=== PATIENT | male | born 1985 | race Caucasian/White ===

== ENCOUNTER 2020-10-06 10:03 | Emergency (ER) | payer BC, SELFPAY ==
[2020-10-06 10:07] VITALS: BP 104/71; PULSE 75; RESP 16; TEMP 36.4; O2SAT 97; BMI 25.7
[2020-10-06 10:14] VITALS: BP 104/71; PULSE 74; RESP 16; O2SAT 97
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
[2020-10-06 10:25] LABS: Basophils # 0.1 10^3/uL (0.0-0.1); Basophils % 0.7 %; Eosinophils # 0.1 10^3/uL (0.0-0.8); Eosinophils % 0.6 %; Hematocrit 45.7 % (42.0-52.0); Hemoglobin 16.1 g/dL (11.7-16.6); Lymphocytes % 34.8 %; Mean Corpuscular HGB Conc 35.2 g/dL (30.0-36.0); Mean Corpuscular Hemoglobin 31.9 pg (28.0-34.0); Mean Corpuscular Volume 90.5 fL (80-94); Mean Platelet Volume 10.3 fL (7.4-10.4); Monocytes % 8.3 %; Neutrophils # 6.39 10^3/uL (1.8-7.7); Neutrophils % 55.2 %; Nucleated Red Blood Cells % 0 %; Platelet Count 345 10^3/cmm (130-400); Red Blood Count 5.05 10^6/uL (4.1-5.3); Red Cell Distribution Width 11.4 % (12.1-15.1); White Blood Count 11.6 10^3/uL (4.0-10.0)
--- NOTE | 2020-10-06 10:34 | W.ED.WOUNDLC ---
HPI - Wound/Laceration General: Chief Complaint: Wound/Laceration Stated Complaint: LEG LAC Time Seen by Provider: 10/06/20 10:07 Source: patient Mode of arrival: ambulatory Limitations: no limitations Procedures Laceration Laceration 1: Site: lower extremity (left medial thigh) Side (If applicable): left Size (cm): 2 Description: linear Depth: involves muscle layer Local Anesthetic: lidocaine 1% and with epi Amount of anesthesia used (mL): 5 Pre-repair: wound explored and irrigated extensively Skin layer closed with: nylon Size (cm): 5-0 Number of sutures: 5 Technique: simple, interrupted Course Vital Signs: Vital signs: Vital Signs Temperature 97.5 F L 10/06/20 10:07 Pulse Rate 74 10/06/20 10:14 Respiratory Rate 16 10/06/20 10:14 Blood Pressure 104/71 10/06/20 10:14 Pulse Oximetry 97 10/06/20 10:14 MDM - Wound/Laceration Lab Data: Labs: Lab Results 10/06/20 Range/Units 10:20 WBC 11.6 H (4.0-10.0) 10^3/ uL RBC 5.05 (4.1-5.3) 10^6/u L Hgb 16.1 (11.7-16.6) g/dL Hct 45.7 (42.0-52.0) % MCV 90.5 (80-94) fL MCH 31.9 (28.0-34.0) pg MCHC 35.2 (30.0-36.0) g/dL RDW 11.4 L (12.1-15.1) % Plt Count 345 (130-400) 10^3/c mm MPV 10.3 (7.4-10.4) fL Neut % (Auto) 55.2 % Lymph % (Auto) 34.8 % Ed[place]ds % (Auto) 8.3 % Eos % (Auto) 0.6 % Baso % (Auto) 0.7 % Neut # (Auto) 6.39 (1.8-7.7) 10^3/u L Lymph # (Auto) 4.0 (0.8-4.8) 10^3/u L Edmunds # (Auto) 1.0 H (0.2-0.9) 10^3/u L Eos # (Auto) 0.1 (0.0-0.8) 10^3/u L Baso # (Auto) 0.1 (0.0-0.1) 10^3/u L Nucleated RBC % (a uto) 0 % Nucleated RBCs # 0.0 /100WBC Coding Level of Care Code ED Primary School Principal for Kathleen Lamb
[2020-10-06] MEDS: iohexol 350 mg/mL 100 mL Btl IV (10:44)
[2020-10-06 10:49] VITALS: RESP 15; O2SAT 98
[2020-10-06] MEDS: morphine 4 mg/mL SDV 1 mL IVP (10:49)
[2020-10-06] MEDS: ondansetron 2 mg/ML SDV 2 mL 4 MG IVP (10:49)
[2020-10-06] MEDS: sodium chloride 0.9% 1,000 ML 999 ML IV (10:49)
[2020-10-06 11:45] LABS: Anion Gap 16.4 (5-19); Blood Urea Nitrogen 20 mg/dL (6-20); Calcium 9.1 mg/dL (8.5-10.5); Carbon Dioxide 24 mmol/L (22-29); Chloride 104 mmol/L (98-107); Glomerular Filtration Rate 77.1 mL/min (90-130); Glucose 128 mg/dL (65-115); Osmolality Calculated 296 mOsm/kg (285-295); Potassium 3.4 mmol/L (3.5-5.1); Sodium 141 mmol/L (136-145)
[2020-10-06] MEDS: tetanus-dipt-pertussis 0.5 mL SDV IM (12:01)
[2020-10-06 12:19] VITALS: BP 113/70; PULSE 75; RESP 18; O2SAT 99
== END 2020-10-06 12:20 | disposition other institution (70) ==
LOC: ER 11:30
PROVIDERS: Emergency Provider Emergency Medicine
DX: S71.112A Laceration without foreign body, left thigh, initial encounter (principal); S85.002A Unspecified injury of popliteal artery, left leg, initial encounter; W26.0XXA Contact with knife, initial encounter; Z23 Encounter for immunization
CPT/HCPCS: 12001; 12345; 73706; 80048; 85025; 90715; 96361; 96374; 96375; 99282; 99285; J2270; J2405; J7030; Q9967

== ENCOUNTER 2022-01-22 20:55 | Emergency (ER) | payer BC, SELFPAY ==
--- NOTE | 2022-01-22 21:01 | XRR_ITS ---
PROCEDURE INFORMATION: Exam: XR Left Ankle Exam date and time: 01/22/2022 9:01 PM Age: 36 years old Clinical indication: Pain; Ankle; Left; Additional info: Injury TECHNIQUE: Imaging protocol: XR Left ankle. Views: 3 or more views. COMPARISON: No relevant prior studies available. FINDINGS: Bones/joints: Normal. Soft tissues: Normal. XR/XR ankle LT min 3V* [id number] IMPRESSION: No acute findings.
[2022-01-22 21:05] VITALS: BP 117/73; PULSE 97; RESP 16; TEMP 36.9; O2SAT 97; BMI 26.4
--- NOTE | 2022-01-22 22:46 | W.ED.EXTPRO ---
HPI - Extremity Problem General: Chief complaint: Extremity Injury, Lower Stated complaint: Left Ankle Injury Time Seen by Provider: 01/22/22 22:44 Source: patient Mode of arrival: ambulatory Limitations: no limitations History of Present Illness: 36-year-old male states he was playing basketball few hours ago and felt a sudden pop to his left Achilles and calf when he was cutting. States is been able ambulate and be had pain over the Achilles he is not able to plantar flex that left foot. States pain currently is a 4 out of 10 improved with rest denies any other injuries denies any pain. Associated symptoms: Deny chest pain, fever(s) or rash Review of Systems Const: Denies: fever(s), chills, body aches or change in appetite Eyes: Denies: blurry vision or eye discomfort ENMT: Denies: throat pain or dental pain Card: Denies: chest pain Resp: Denies: dyspnea GI: Denies: abdominal pain, nausea, vomiting or diarrhea : Denies: dysuria Musc: Reports: extremity pain Skin/Breast: Denies: rash Neuro: Denies: headache(s) Psych: Denies: depression Reagan/Lymph: Denies: easy bruising All/Imm: Denies: urticaria Physical Exam Const: COMMON NORMALS: no acute distress and patient oriented x3 HENMT: COMMON NORMALS: normocephalic and atraumatic HEAD & SCALP: normocephalic and atraumatic Eye: COMMON NORMALS: EOMs intact bilaterally Neck/C-Spine: COMMON NORMALS: full ROM and supple Chest: COMMONS NORMALS: normal inspection of the chest Resp: COMMON NORMALS: normal respiratory effort Cardio: COMMON NORMALS: regular rate RATE: regular rate Extremity: NARRATIVE EXTREMITY EXAM: Some swelling over the Achilles tendon he does have a negative Ayala test she had no plantar flexion of the foot when I squeeze his calf Neuro: COMMON NORMALS: patient oriented x3 Psych: COMMON NORMALS: mental status grossly normal and cooperative Skin: COMMON NORMALS: no rashes or lesions noted GENERAL SKIN EXAM: no rashes or lesions noted Course Vital Signs: Vital signs: Vital Signs Temperature 98.4 F 01/22/22 21:05 Pulse Rate 97 01/22/22 21:05 Respiratory Rate 16 01/22/22 21:05 Blood Pressure 117/73 01/22/22 21:05 Pulse Oximetry 97 01/22/22 21:05 MDM - Extremity (Nontraumatic) Medical Decision Making Patient presents here with likely Achilles tear patient placed in a splint and crutches he is to be nonweightbearing and follow-up with orthopedics. Lab Data Radiology Impressions Ankle X-Ray 01/22/22 21:01 IMPRESSION: No acute findings. Discharge Plan Discharge Patient Disposition: Home Clinical Impression: Injury of left Achilles tendon Condition: Stable Prescriptions: New hydrocodone-acetaminophen 5-325 mg tablet 1 tab PO Q6H PRN (Reason: pain) Qty: 14 0RF ondansetron 4 mg tablet,disintegrating 4 mg PO Q6H PRN (Reason: nausea and vomiting) Qty: 14 0RF No Action cetirizine 10 mg PO PRN PRN (Reason: Allergy Symptoms) 0RF Discharge Orders: Discharge ED (Routine); Ordered 01/22/22 Ordered By: Lalito Garcia Referrals: Patricio Friend DO [Physician] - 1-3 days Discharge Diet: Advance as tolerated Discharge Activity: Resume usual activity Patient Instructions: Achilles Tendon Rupture (ED) Coding Level of Care Code ED Account Engineer for Kathleen Lamb
[2022-01-22 23:24] VITALS: BP 112/71; PULSE 82; RESP 16; O2SAT 98
--- NOTE | 2022-01-23 08:37 | DCPLANNER ---
Addendum entered by Cheryl Chávez 02/19/22 08:05: Patient had a follow up appointment scheduled for 01.27.[address] Pozo at ortho - patient did attend appointment. Addendum entered by Cheryl Chávez 01/27/22 07:35: Patient has a follow up appointment scheduled for Thursday, January 27, 2022 at 2:[address] Pozo at ortho. Clinic will call patient with appointment information. Original Note: cemetery manager had message to schedule a follow up appointment for patient with ortho. cemetery manager called the ortho clinic, spoke with Luanne, gave clinic patients information. cemetery manager was told that patients information would be printed and reviewed. Clinic will call patient with appointment information.
== END 2022-01-22 23:26 | disposition home or self-care (01) ==
PROVIDERS: Emergency Provider Emergency Medicine
DX: S86.002A Unspecified injury of left Achilles tendon, initial encounter (principal); X58.XXXA Exposure to other specified factors, initial encounter; Y93.67 Activity, basketball
CPT/HCPCS: 29515; 73610; 99283

== ENCOUNTER 2022-01-27 15:19 | Outpatient (CLI) | payer BC, SELFPAY | END 2022-01-27 15:20 | disposition home or self-care (01) | LOC: SPT 01-28 09:20 | PROVIDERS: Visit Provider Podiatrist Foot & Ankle Surgery | DX: Z46.89 Encounter for fitting and adjustment of other specified devices (principal); S86.002D Unspecified injury of left Achilles tendon, subsequent encounter; X58.XXXD Exposure to other specified factors, subsequent encounter | CPT/HCPCS: 97760; L4361 ==

== ENCOUNTER 2022-01-31 08:01 | Outpatient (CLI) | payer BC, SELFPAY ==
--- NOTE | 2022-01-31 08:09 | MR_ITS ---
WS: [id number] MRI LEFT ANKLE NONCONTRAST TECHNIQUE: Sagittal proton density, sagittal STIR, axial proton density, axial T1, axial T2 fat sat, coronal proton density, coronal proton density fat sat, coronal T2 fat sat. CLINICAL INFORMATION: achilles tendon rupture COMPARISON: None. FINDINGS: High-grade complete tear midsubstance Achilles tendon approximately 6.5 cm from the calcaneal inserti on. Mild tendon retraction with Fluid-filled defect and mild widening measuring 6.7 mm. Distal Achill es appears intact at the calcaneal insertion. Normal medial and lateral malleolus. Normal talus. Normal peroneal longus and brevis. Normal extensor and flexor compartment tendons. Normal bone marrow signal in the talus and calcaneus. Normal tibiotalar articulation. Normal cuboid. Normal cuneiforms. Normal navicular. MR/MR ankle LT wo con* [id number] IMPRESSION: 1. High-grade complete tear of the midsubstance Achilles tendon with mild retr action. Fluid-filled tendon defect measuring 6.7 mm. 2. Midsubstance Achilles tear is approximately 6.5 cm from the calcaneal inser tion. 3. Normal peroneus longus and brevis. 4. Normal bone marrow signal. No other significant findings.
== END 2022-01-31 08:02 | disposition home or self-care (01) ==
PROVIDERS: Visit Provider Podiatrist Foot & Ankle Surgery
DX: S86.012A Strain of left Achilles tendon, initial encounter (principal); X58.XXXA Exposure to other specified factors, initial encounter
CPT/HCPCS: 73721

== ENCOUNTER → 2022-02-03 00:01 | Outpatient (BNVA) | payer BC, SELFPAY | PROVIDERS: Visit Provider Podiatrist Foot & Ankle Surgery | DX: Z20.822 Contact with and (suspected) exposure to COVID-19 (principal); S86.012A Strain of left Achilles tendon, initial encounter | CPT/HCPCS: 87635 ==

== ENCOUNTER 2022-02-06 09:26 | Day surgery (SDC) | payer BC, SELFPAY ==
[2022-02-05 12:59] VITALS: BMI 26.4
[2022-02-06] VITALS (7 sets, daily range): BP systolic 124–137; BP diastolic 77–91; PULSE 72–87; RESP 14–18; TEMP 36.6–36.8; O2SAT 96–100
--- NOTE | 2022-02-06 10:19 | ANES.PREANE2 ---
Pre-Anesthetic Assessment Height/Weight: Height 1.8 m Weight 86.183 kg Preop Diagnosis: Left Achilles rupture Operation Date: 02/06/22 11:05 Proposed Procedures p Achilles Tendon Repair Foot 46698/s86.012a(Left) - Yariel Pozo DPM Familial anesthetic complications: None Was Beta Iveth taken within 24 hours: N/A Was Clonidine taken within 24 hours: N/A Last intake: Intake Last Liquid Date 02/05/22 Last Liquid Time 21:00 Last Solid Date 02/05/22 Last Solid Time 21:00 Social No alcohol and No tobacco Exam alert, oriented x 3, clear to auscultation bilaterally and regular rate & rhythm Airway Mallampati: Class I Dentition: full Pulmonary allergies Anesthetic Plan ASA status: 1 Anesthesia: General Risk of > 500 ml blood loss (7ml/kg in children): No Other Pertinent Information Prone positioning during case Medications/Allergies Home Medications Medication Instructions Recorded Confirmed Last Taken Type cam boot #1 ea 01/27/22 01/27/22 Unknown Rx knee scooter #1 ea 01/27/22 01/27/22 Unknown Rx Allergies Allergy/AdvReac Type Severity Reaction Status Date / Time Penicillins Allergy Unknown Verified 02/05/22 12:58 Data Anesthesia Cardiac Studies: No Data to Display
[2022-02-06] MEDS: CELEcoxib 200 mg Capsule 400 MG PO (10:49)
[2022-02-06] MEDS: gabapentin 300 mg Capsule PO (10:49)
[2022-02-06] MEDS: sodium chloride 0.9% 1,000 ML 30 ML IV (10:49)
--- NOTE | 2022-02-06 10:53 | W.PM.OPSUD ---
Surgery/Procedure H&P Update DATE OF PROCEDURE: February 06, 2022 DATE H&P PERFORMED: 01/27/22 CHANGES TO PREVIOUS DOCUMENTATION: none PREOP DIAGNOSIS: Left Achilles rupture PLANNED PROCEDURE: Operation Date: 02/06/22 11:05 Proposed Procedures p Achilles Tendon Repair Foot 32505/s86.012a(Left) - Yariel Pozo DPM
[2022-02-06] MEDS: clindamycin 600 MG/50 ML PREMIX 100 MG IV (11:40)
[2022-02-06] MEDS: lidocaine 1% INJ 20 mL INJECTION (11:53)
--- NOTE | 2022-02-06 12:28 | PM.OP ---
Operative Report Date of procedure: February 06, 2022 Pre-op diagnosis: Left Achilles rupture Post-op diagnosis: Same Post-op findings: Complete rupture left Achilles tendon Procedure done: Open repair left Achilles tendon rupture CPT code 42315 Implants: #2 Force Fiber, 3-0 Vicryl, 3-0 nylon Specimens removed/disposition: None Pathology: None Surgeon: Yariel Pozo D.P.M. Physical Fitness Trainer: Consuelo Estimated blood loss: 5 25 IV fluids: None Urine output: None Complications: None Findings: Complete rupture left Achilles tendon Brief History: Left Achilles rupture on 36-year-old male date of injury 01/22/2022 playing basketball felt a sudden pop unable to plantarflex. MRI shows complete rupture. Recommended open repair with risks including but not limited to pain, bleeding, numbness, infection, surgical site dehiscence, rerupture, decreased power decreased strength and decreased range of motion, altered mechanics and need for further surgical intervention also risk for deep vein thrombosis, heart attack, stroke and . Patient is agreeable wishes to proceed, n.p.o. since midnight. Covid screening negative, informed consent signed by patient and myself I initialed his left lower extremity preoperatively answered all questions to his satisfaction. Procedure: Under mild sedation the patient was brought to the operating room. Timeout was performed. Anesthesia was then administered by the anesthesia service. Patient was placed prone with appropriate padding and support onto the operating room table. Well-padded pneumatic tourniquet applied to the left thigh. The left lower extremity was then scrubbed, prepped and draped utilizing normal aseptic technique. Left lower extremity was exanguinated with an Esmarch bandage and a tourniquet inflated to 250 mmHg. Attention was directed to the left Achilles tendon where a linear longitudinal incision was made at the medial border of the Achilles of the left posterior leg. Incision was made through skin with #15 blade with dissection carried down to peritenon trying to maintain a full-thickness flap down to the peritenon which was then reflected medially and laterally care was taken to retract and preserve neurovascular and tendinous structures. All bleeders were ligated and cauterized as necessary. A complete rupture of the Achilles tendon proximal to the watershed zone was appreciated. Very little remodeling was required, the distal stump was well consolidated and very little fraying of the proximal stump appreciated this was debrided and reapproximated utilizing #2 Force Fiber in a Krak?w modified stitch. The Achilles was approximated and noted to be under excellent tension that was anatomic. Incision site was flushed with saline solution, 3-0 Vicryl to reapproximate peritenon and subcutaneous tissue and 3-0 nylon to reapproximate skin. Incision site was then dressed with Adaptic, sterile 4 x 4, Kerlix and Marv wrap followed by application of cam boot with Achilles wedge to maintain equinus position and offloading the Achilles tendon while healing. Tourniquet was deflated and a prompt hyperemic response was noted to the distal digits of the left foot. Patient tolerated the procedure and anesthesia well and was transferred to the PACU with vital signs stable vascular status intact. Following a period of postop monitoring he will be discharged home he already has crutches and will continue strict nonweightbearing and elevating his left foot while resting maintaining an equinus position with Achilles wedge in cam boot. Follow-up in clinic as currently scheduled was given at home care instructions and my cell phone number to contact me with any postoperative questions or concerns.
--- NOTE | 2022-02-06 12:51 | SUR.PHASEI ---
patient awake but drowsy, simple mask removed. placed on room air. sats at 99%.
[2022-02-06] MEDS: ondansetron 2 mg/ML SDV 2 mL 4 MG IVP (13:21)
[2022-02-06] MEDS: oxyCODONE-APAP 10-325 mg Tablet 1 TAB PO (14:11)
== END 2022-02-06 14:20 | disposition home or self-care (01) ==
PROVIDERS: Visit Provider Podiatrist Foot & Ankle Surgery
PROC: (CPT 27650; principal; 2022-02-06 10:55)
DX: S86.012A Strain of left Achilles tendon, initial encounter (principal); X58.XXXA Exposure to other specified factors, initial encounter; Y93.67 Activity, basketball
CPT/HCPCS: 27650; J1100; J1885; J2405; J2704; J3010; J3490; J7030

== ENCOUNTER 2022-03-23 06:00 | Outpatient (RCR) | payer BC, SELFPAY | END 2022-04-21 23:59 | disposition home or self-care (01) | LOC: SPT 06:00 | PROVIDERS: Referring Provider Podiatrist Foot & Ankle Surgery; Visit Provider Podiatrist Foot & Ankle Surgery | DX: Z47.89 Encounter for other orthopedic aftercare (principal) | CPT/HCPCS: 97110; 97161 ==

== ENCOUNTER 2022-04-22 06:00 | Outpatient (RCR) | payer BC, SELFPAY | END 2022-04-30 23:59 | disposition home or self-care (01) | LOC: SPT 06:00 | PROVIDERS: Referring Provider Podiatrist Foot & Ankle Surgery; Visit Provider Podiatrist Foot & Ankle Surgery | DX: S86.002D Unspecified injury of left Achilles tendon, subsequent encounter (principal); S86.022D Laceration of left Achilles tendon, subsequent encounter; X58.XXXD Exposure to other specified factors, subsequent encounter | CPT/HCPCS: 97110 ==